=== PATIENT | female | born 1980 | race Caucasian/White ===

== ENCOUNTER 2016-07-13 20:32 | Emergency (ER) | payer OTHER ==
[~2016-07-13] VITALS: Ht 160 cm; Wt 81.7 kg
[~2016-07-13 20:32] MED LIST: DOXYCYCLINE 10100 MG PO; PHENERGAN 25 MG25 M1 PO; TRAMADOL 50 MG50 MG PO
[2016-07-13 21:25] VITALS: BP 102/57
[2016-07-13] MEDS ORDERED: PROMETHAZINE-D120 ML PO (21:34)
[2016-07-13] MEDS ORDERED: TYLENOL EXTRA500 MG PO (21:34)
== END 2016-07-13 21:57 | disposition home or self-care (01) ==
LOC: ER 20:32
DX: R51 Headache (principal); R05 Cough; Z87.19 Personal history of other diseases of the digestive system; Z88.1 Allergy status to other antibiotic agents; Z88.6 Allergy status to analgesic agent; Z88.0 Allergy status to penicillin; Z88.5 Allergy status to narcotic agent; Z88.8 Allergy status to other drugs, medicaments and biological substances; F17.210 Nicotine dependence, cigarettes, uncomplicated

== ENCOUNTER 2016-09-15 18:13 | Emergency (ER) | payer OTHER ==
[~2016-09-15] VITALS: Ht 160 cm; Wt 81.7 kg
[~2016-09-15 18:13] MED LIST changes: +IBUPROFEN 800800 M1 PO; +PROMETHAZINE-D120 ML PO; +TYLENOL EXTRA500 MG PO
[2016-09-15] MEDS ORDERED: MOBIC15 MG PO (19:54)
[2016-09-15 20:13] VITALS: BP 136/90
== END 2016-09-15 20:14 | disposition home or self-care (01) ==
LOC: ER 18:13
DX: M25.561 Pain in right knee (principal); K72.90 Hepatic failure, unspecified without coma; G43.909 Migraine, unspecified, not intractable, without status migrainosus; F17.210 Nicotine dependence, cigarettes, uncomplicated; Z88.1 Allergy status to other antibiotic agents; Z88.0 Allergy status to penicillin; Z88.6 Allergy status to analgesic agent; Z88.5 Allergy status to narcotic agent; Z91.013 Allergy to seafood

== ENCOUNTER 2016-11-30 10:24 | Emergency (ER) | payer OTHER ==
[~2016-11-30] VITALS: Ht 160 cm; Wt 81.7 kg
[~2016-11-30 10:24] MED LIST changes: +MOBIC15 MG PO
[2016-11-30 11:01] LABS: URINE BILIRUBIN NEGATIVE (Negative); URINE BLOOD NEGATIVE (Negative); URINE COLOR YELLOW; URINE GLUCOSE-RANDOM* NEGATIVE (Negative); URINE KETONES TRACE (Negative); URINE NITRITE NEGATIVE (Negative); URINE PROTEIN (DIPSTICK) NEGATIVE (Negative); URINE UROBILINOGEN 0.2 E.U./dl (0.2-1.0)
[2016-11-30 11:06] LABS: ABSOLUTE NEUTROPHILS 4.5 thou/uL (1.4-8.2); BASOPHILS 0.5 % (0.0-2.0); EOSINOPHILS 3.9 % (0.0-3.0); HEMATOCRIT 33.6 % (37.0-47.0); LYMPHOCYTES 23.2 % (24.0-44.0); MANUAL DIFF NO; MCH 25.2 pg (26.0-34.0); MCHC 32.6 g/dL (28.0-37.0); MCV 77.3 fL (80.0-100.0); MONOCYTES 9.2 % (1.0-8.0); PLATELET COUNT 222 thou/uL (150-400); POLYS 63.2 % (36.0-66.0); RBC 4.35 mil/uL (4.20-5.00); RDW 16.1 % (10.5-14.5); WBC 7.1 thou/uL (4.0-11.0)
[2016-11-30 11:13] LABS: CALCIUM 8.7 mg/dL (8.5-10.1); CREATININE 0.5 mg/dL (0.6-1.0)
[2016-11-30 11:20] LABS: ALBUMIN 3.4 g/dL (3.4-5.0); TOTAL BILIRUBIN 0.2 mg/dL (<0.1-1.0); TOTAL PROTEIN 7.1 g/dL (6.4-8.2)
[2016-11-30 13:36] VITALS: BP 124/72
== END 2016-11-30 13:37 | disposition home or self-care (01) ==
LOC: ER 10:24
PROVIDERS: Nurse Practitioner
DX: O00.90 Unspecified ectopic pregnancy without intrauterine pregnancy (principal); M75.51 Bursitis of right shoulder; G43.909 Migraine, unspecified, not intractable, without status migrainosus; F17.210 Nicotine dependence, cigarettes, uncomplicated; Z88.0 Allergy status to penicillin; Z88.8 Allergy status to other drugs, medicaments and biological substances; Z88.1 Allergy status to other antibiotic agents; Z91.013 Allergy to seafood; Z88.5 Allergy status to narcotic agent

== ENCOUNTER 2017-09-07 12:39 | Emergency (ER) | payer OTHER ==
[~2017-09-07] VITALS: Ht 160 cm; Wt 83.9 kg
--- NOTE | ~2017-09-07 | EKG ---
[address] [place] [address] ELECTROCARDIOGRAM REPORT Name: FONTAINEJERARDO Room #: [facility]..#: [id number] Admission: Attend Phys: Discharge: Date of : 78 Report #: [id number] THIS REPORT FOR: //name// [facility] ED Test Date: 2017-09-07 Test Time: 12:42:41 Pat Name: JERARDO FONTAINE Department: Room: Gender: F Vtc Technician: maribel : 1980 Requested By: Rodney Barbour Order Number: [id number] MD: Ever Jeff Measurements Intervals Deputy Rate: 61 P: 11 MD: 143 QRS: 36 QRSD: 95 T: 29 QT: 411 QTc: 414 Interpretive Statements Sinus rhythm Borderline low voltage, extremity leads No previous ECG available for comparison Electronically Signed On 09-07-2017 13:10:18 CDT by Ever Jeff [email or web address] <ELECTRONICALLY SIGNED> By: Ever Jeff MD 09/07/17 1310 1242 1242 Ever Jeff MD /CARYL
[2017-09-07 13:13] LABS: ABSOLUTE NEUTROPHILS 4.4 thou/uL (1.4-8.2); BASOPHILS 0.5 % (0.0-2.0); EOSINOPHILS 4.8 % (0.0-3.0); HEMATOCRIT 28.2 % (37.0-47.0); HEMOGLOBIN 9.7 gm/dL (12.0-15.0); LYMPHOCYTES 28.3 % (24.0-44.0); MCH 25.2 pg (26.0-34.0); MCHC 34.2 g/dL (28.0-37.0); MCV 73.7 fL (80.0-100.0); MONOCYTES 7.8 % (1.0-8.0); PLATELET COUNT 262 thou/uL (150-400); POLYS 58.6 % (36.0-66.0); RBC 3.83 mil/uL (4.20-5.00); RDW 22.6 % (10.5-14.5); WBC 7.5 thou/uL (4.0-11.0)
[2017-09-07 13:20] LABS: ANION GAP 7 mmol/L (7-16); BUN 14 mg/dL (7-18); CALCIUM 8.4 mg/dL (8.5-10.1); CHLORIDE 106 mmol/L (98-107); CO2 25 mmol/L (21-32); CREATININE 0.6 mg/dL (0.6-1.0); GLUCOSE 93 mg/dL (74-106); POTASSIUM 3.6 mmol/L (3.5-5.1); SODIUM 138 mmol/L (136-145)
[2017-09-07 13:29] LABS: ALBUMIN 3.1 g/dL (3.4-5.0); SGOT 28 U/L (15-37); SGPT 32 U/L (30-65); TOTAL BILIRUBIN 0.2 mg/dL (<0.1-1.0); TOTAL PROTEIN 6.6 g/dL (6.4-8.2); TROPONIN-I <0.06 ng/mL (<0.06)
[2017-09-07 14:24] LABS: ANISOCYTOSIS 3+; MICROCYTES 2+; PLATELET ESTIMATE NORMAL
[2017-09-07 15:52] VITALS: BP 132/78
== END 2017-09-07 15:53 | disposition home or self-care (01) ==
LOC: ER 12:39
PROVIDERS: Emergency Medicine
DX: R07.9 Chest pain, unspecified (principal); G43.909 Migraine, unspecified, not intractable, without status migrainosus; F17.210 Nicotine dependence, cigarettes, uncomplicated; Z88.0 Allergy status to penicillin; Z88.1 Allergy status to other antibiotic agents; Z88.5 Allergy status to narcotic agent; Z88.6 Allergy status to analgesic agent

== ENCOUNTER 2020-04-04 17:02 | Emergency (ER) | payer OTHER ==
[~2020-04-04] VITALS: Ht 160 cm; Wt 81.7 kg
[2020-04-04] MEDS ORDERED: HYDROCODON-ACE1 EAC7 PO (17:29)
[2020-04-04] MEDS ORDERED: KEFLEX500 M1 PO (17:29)
[2020-04-04 17:40] VITALS: BP 140/98
== END 2020-04-04 17:36 | disposition home or self-care (01) ==
LOC: ER 17:02
DX: L02.413 Cutaneous abscess of right upper limb (principal); F17.210 Nicotine dependence, cigarettes, uncomplicated; G43.909 Migraine, unspecified, not intractable, without status migrainosus; Z88.0 Allergy status to penicillin; Z88.1 Allergy status to other antibiotic agents; Z88.5 Allergy status to narcotic agent; Z88.8 Allergy status to other drugs, medicaments and biological substances; Z91.013 Allergy to seafood